=== PATIENT | female | born 1990 | race African-American/Black ===

== ENCOUNTER 2023-10-07 22:23 | Emergency (ER) | payer OTHER ==
[~2023-10-07 22:23] MED LIST: LIDOCAINE PATCH REMOVAL MC SCH
[2023-10-07 22:27] VITALS: RESP 20; TEMP 98.2; BMI 35.6
[2023-10-07] MEDS ORDERED: IBUPROFEN 600 MG TABLET (FP) PO ONE (22:57)
[2023-10-07] MEDS: IBUPROFEN 600 MG TABLET (FP) PO ONE (22:58)
[2023-10-07] MEDS ORDERED: LIDOCAINE 4% PATCH TP ONE ×2 (23:07→23:12)
[2023-10-07 23:11] VITALS: BP 160/113; PULSE 88
== END 2023-10-07 23:14 | disposition home or self-care (01) ==
LOC: JERFT 22:23
DX: M25.561 Pain in right knee (principal); M25.562 Pain in left knee; W01.0XXA Fall on same level from slipping, tripping and stumbling without subsequent striking against object, initial encounter
CPT/HCPCS: 73562-TC-LT-FY; 99283-25